=== PATIENT | male | born 1965 ===

== ENCOUNTER 2016-08-26 18:22 | Emergency (ER) | payer OTHER ==
--- NOTE | 2016-08-26 18:41 | ED PDOC ---
Lower Extremity Pain/Injury Time Seen by Provider: 08/26/16 18:32 Chief Complaint (Nursing): Lower Extremity Problem/Injury Chief Complaint (Provider): knee pain History Per: Patient, EMS History/Exam Limitations: no limitations Onset/Duration Of Symptoms: Unknown Additional Complaint(s): Sylvester Elder is a 51 year old male who presents to the ED for the evaluation of pain to left knee s/p trip and fall just prior to arrival. Patient lives in [facility] and he reports attempting to sit on a chair when he slipped off the chair and landed on his left knee. Patient has slight pain to left knee and states that [facility] mandated that he come to ED for eval. Patient uses walker at baseline but was not using walker at time of fall. He states he has been able to walk and bear weight since time of injury. No head injury or LOC was sustained. PMD: none provided Past Medical History Reviewed: Historical Data, Nursing Documentation, Vital Signs Vital Signs: Last Vital Signs Temp 97.0 F L 08/26/16 18:24 Pulse 107 H 08/26/16 18:24 Resp 16 08/26/16 18:24 BP 161/78 H 08/26/16 18:24 Pulse Ox 99 08/26/16 18:24 - Medical History PMH: No Chronic Diseases - Surgical History Surgical History: No Surg Hx - Family History Family History: States: No Known Family Hx - Living Arrangements Living Arrangements: Other (lives in [facility]) - Social History Current smoker - smoking cessation education provided: No Alcohol: None Drugs: Denies - Home Medications Home Medications: Ambulatory Orders Medication Instructions Recorded Furosemide [Lasix] 40 mg PO DAILY #30 tablet 08/21/16 Losartan [Cozaar] 25 mg PO DAILY #30 tab 08/21/16 Spironolactone [Aldactone] 25 mg PO DAILY #30 tab 08/21/16 - Allergies Allergies/Adverse Reactions: Allergies Allergy/AdvReac Type Severity Reaction Status Date / Time Penicillins Allergy Verified 08/22/16 20:59 Wells Criteria for PE - Wells Criteria for Pulmonary Embolism Clinical Signs and Symptoms of DVT: No P.E is #1 Diagnosis, or Equally Likely: No Heart Rate >100: No Immobilization at least 3 days;Surgery previous 4 weeks: No Previous, objectively diagnosed PE or DVT: No Hemoptysis: No Malignancy w/treatment within 6 months, or palliative: No Total Score: 0 Review of Systems ROS Statement: Except As Marked, All Systems Reviewed And Found Negative Musculoskeletal: Positive for: Leg Pain (left knee pain ) Physical Exam - Reviewed Nursing Documentation Reviewed: Yes Vital Signs Reviewed: Yes - Physical Exam Appears: Positive for: Well, Non-toxic, No Acute Distress Skin: Negative for: Rash Eye Exam: Positive for: Normal appearance, EOMI, PERRL Cardiovascular/Chest: Positive for: Regular Rate, Rhythm Respiratory: Positive for: Normal Breath Sounds Extremity: Positive for: Pedal Edema (bilaterally, chronic), Other (full rom left knee with pain, chronic venous stasis dermatitis to bilateral lower extremities). Negative for: Calf Tenderness, Deformity Neurologic/Psych: Positive for: Alert, Oriented - ECG O2 Sat by Pulse Oximetry: 99 (RA) Pulse Ox Interpretation: Normal - Other Rad Left knee x-ray X-Ray: Interpreted by Me, Viewed By Me X-Ray Interpretation: no fx, no dis Medical Decision Making Medical Decision Making: Initial Impression: 51 year old male with left knee pain s/p fall Initial Plan: * x-ray left knee Pt declined pain meds. Patient aware of x-ray results, all questions answered. Knee brace declined. Patient was instructed to take tylenol as needed for pain and he was referred to clinic for follow up. Scribe Attestation: Documented by Lauren Small, acting as a scribe for Magali Olsen PA-C. Provider Scribe Attestation: All medical record entries made by the Scribe were at my direction and personally dictated by me. I have reviewed the chart and agree that the record accurately reflects my personal performance of the history, physical exam, medical decision making, and the department course for this patient. I have also personally directed, reviewed, and agree with the discharge instructions and disposition. Disposition - Clinical Impression Clinical Impression: Knee contusion - Patient ED Disposition Is Patient to be Admitted: No Counseled Patient/Family Regarding: Studies Performed, Diagnosis, Need For Followup - Disposition Referrals: [facility] [Provider Group] Disposition: Routine/Home Disposition Time: 20:49 Condition: STABLE Additional Instructions: Ice, rest and elevate affected area. Take tylenol for pain as needed. Follow up with clinic in 2-3 days. Instructions: Knee Sprain (ED) Print Language: ICELANDIC
[2016-08-26 21:13] VITALS: BP 135/67; PULSE 96; RESP 18; TEMP 98.2; O2SAT 97
--- NOTE | 2016-08-27 10:11 | RAD ---
PROCEDURE: Left Knee Radiographs. HISTORY: Pain. COMPARISON: None. FINDINGS: BONES: No evidence of acute fracture. JOINTS: Moderate to severe osteoarthritic changes are noted associated with severe narrowing of the medial component of the left knee joint and marginal osteophyte formation. JOINT EFFUSION: No radiographic evidence of significant joint effusion. OTHER FINDINGS: None. IMPRESSION: Moderate to severe osteoarthritic changes.
== END 2016-08-26 21:12 | disposition home or self-care (01) ==
LOC: H.ER 18:22
DX: S80.02XA Contusion of left knee, initial encounter (principal); W07.XXXA Fall from chair, initial encounter; Y92.199 Unspecified place in other specified residential institution as the place of occurrence of the external cause

== ENCOUNTER 2017-05-22 07:54 | Inpatient (IN) | payer OTHER, SELFPAY ==
[2017-05-22 08:00] VITALS: BMI 33.4
--- NOTE | 2017-05-22 08:48 | ED PDOC ---
HPI: Chest Pain Time Seen by Provider: 05/22/17 08:17 Chief Complaint (Nursing): Chest Pain Chief Complaint (Provider): Chest Pain History Per: Patient History/Exam Limitations: no limitations Onset/Duration Of Symptoms: Other (Chronic) Current Symptoms Are (Timing): Still Present Additional Complaint(s): 52 year old male with no significant past medical history, who presents to the ED complaining of dizziness associated with headaches. States symptoms are chronic, but worse over past 2 days. No LOC. Denies chest pain or shortness of breath. PMD: None provided Past Medical History Reviewed: Historical Data, Nursing Documentation, Vital Signs Vital Signs: Last Vital Signs Temp 98.0 F 05/22/17 07:58 Pulse 83 05/22/17 09:02 Resp 16 05/22/17 09:02 BP 161/94 H 05/22/17 09:02 Pulse Ox 94 L 05/22/17 09:02 - Medical History PMH: Denies: HTN, Chronic Kidney Disease - Surgical History Surgical History: No Surg Hx - Family History Family History: States: Unknown Family Hx - Immunization History Hx Tetanus Toxoid Vaccination: No Hx Influenza Vaccination: No Hx Pneumococcal Vaccination: No - Home Medications Home Medications: Ambulatory Orders Medication Instructions Recorded Furosemide [Lasix] 40 mg PO DAILY #30 tablet 08/21/16 Losartan [Cozaar] 25 mg PO DAILY #30 tab 08/21/16 Spironolactone [Aldactone] 25 mg PO DAILY #30 tab 08/21/16 Losartan [Cozaar] 25 mg PO DAILY #30 tab 05/22/17 - Allergies Allergies/Adverse Reactions: Allergies Allergy/AdvReac Type Severity Reaction Status Date / Time Penicillins Allergy Verified 08/22/16 20:59 Review of Systems ROS Statement: Except As Marked, All Systems Reviewed And Found Negative Neurological: Positive for: Headache, Dizziness Physical Exam - Reviewed Nursing Documentation Reviewed: Yes Vital Signs Reviewed: Yes - Physical Exam Appears: Positive for: Non-toxic, No Acute Distress Head Exam: Positive for: ATRAUMATIC, NORMAL INSPECTION, NORMOCEPHALIC Skin: Positive for: Normal Color, Warm, Dry. Negative for: Rash Eye Exam: Positive for: EOMI, Normal appearance, PERRL Neck: Positive for: Normal, Painless ROM, Supple Cardiovascular/Chest: Positive for: Regular Rate, Rhythm, Tachycardia (115). Negative for: Murmur Respiratory: Positive for: Normal Breath Sounds (lungs clear bilaterally). Negative for: Respiratory Distress Gastrointestinal/Abdominal: Positive for: Normal Exam, Bowel Sounds, Soft. Negative for: Tenderness Back: Positive for: Normal Inspection. Negative for: L CVA Tenderness, R CVA Tenderness, Vertebral Tenderness Extremity: Positive for: Normal ROM. Negative for: Pedal Edema, Deformity, Swelling Neurologic/Psych: Positive for: Alert, Oriented (x3). Negative for: Motor/ Sensory Deficits - ECG O2 Sat by Pulse Oximetry: 100 (RA) Pulse Ox Interpretation: Normal Medical Decision Making Medical Decision Making: Time: 08:22 Plan: --EKG --Lopressor 25 mg PO --Reevaluation Scribe Attestation: Documented by El Loya, acting as a scribe for Georges Downey MD. Provider Scribe Attestation: All medical record entries made by the Scribe were at my direction and personally dictated by me. I have reviewed the chart and agree that the record accurately reflects my personal performance of the history, physical exam, medical decision making, and the department course for this patient. I have also personally directed, reviewed, and agree with the discharge instructions and disposition. Disposition - Clinical Impression Clinical Impression: Hypertension - Patient ED Disposition Is Patient to be Admitted: No Counseled Patient/Family Regarding: Studies Performed, Diagnosis, Need For Followup, Rx Given - Disposition Referrals: [facility] [Outside] Disposition: Routine/Home Disposition Time: 09:34 Condition: FAIR Prescriptions: Losartan [Cozaar] 25 mg PO DAILY #30 tab Instructions: Hypertension (ED) Forms: [place] ([place] Irish)
[2017-05-22 13:01] LABS: BASO # 0.1 K/uL (0.0-0.2); BASO % 1.8 % (0.0-2.0); EOS # 0.1 K/uL (0.0-0.7); EOS % 1.2 % (0.0-4.0); HEMOGLOBIN 12.2 g/dL (12.0-18.0); LYMPH # 0.6 K/uL (1.0-4.3); MEAN CORPUSCULAR HEMOGLOBIN 34.1 pg (27.0-31.0); MEAN CORPUSCULAR HGB CONC 34.1 g/dL (33.0-37.0); MEAN PLATELET VOLUME 7.9 fl (7.2-11.7); MONO # 0.4 K/uL (0.0-0.8); MONO % 5.1 % (0.0-10.0); NEUT # 6.3 K/uL (1.8-7.0); NEUT % 83.9 % (50.0-75.0); PLATELET COUNT 64 K/uL (130-400); RBC 3.57 Mil/uL (4.40-5.90); RED CELL DISTRIBUTION WIDTH 18.1 % (11.5-14.5); WHITE BLOOD COUNT 7.5 K/uL (4.8-10.8)
[2017-05-22 13:09] LABS: ALT/SGPT 86 U/L (21-72); AST/SGOT 336 U/L (17-59); BLOOD UREA NITROGEN 11 mg/dl (9-20); CALCIUM 7.9 mg/dL (8.4-10.2); GFR AFRICAN-AMERICAN > 60; GFR NON-AFRICAN AMERICAN > 60
[2017-05-22 13:14] LABS: ALB/GLOB RATIO 0.6 (1.0-2.1)
[2017-05-22] MEDS ORDERED: Sodium Chloride 0.9% 1,000 ML IV STA (13:53)
[2017-05-22] MEDS ORDERED: Sodium Chloride 0.9% 50 ML IV ONE (14:30)
[2017-05-22] MEDS ORDERED: Iohexol 300 100 ML IJ ONE (14:30)
--- NOTE | 2017-05-22 15:14 | CT ---
PROCEDURE: CT Abdomen and Pelvis with contrast HISTORY: Elevated bili, abd pain COMPARISON: None. TECHNIQUE: Contrast dose: 95 mL Omnipaque 300 Radiation dose: Total exam DLP = 1093.7 mGy-cm. This CT exam was performed using one or more of the following dose reduction techniques: Automated exposure control, adjustment of the mA and/or kV according to patient size, and/or use of iterative reconstruction technique. FINDINGS: LOWER THORAX: Cardiomegaly. No focal consolidation or pleural effusion. LIVER: Diffuse heterogeneous attenuation, limiting evaluation for focal lesion. No ductal dilatation. GALLBLADDER AND BILE DUCTS: Mild wall thickening. PANCREAS: Mild peripancreatic hazy change and trace fluid. No gross lesion or ductal dilatation. SPLEEN: Unremarkable. ADRENALS: Unremarkable. No mass. KIDNEYS AND URETERS: Unremarkable. No hydronephrosis. No solid mass. VASCULATURE: Unremarkable. No aortic aneurysm. BOWEL: Diffusely mildly thickened. No obstruction. APPENDIX: Not visualized. PERITONEUM: Minimal perihepatic and perisplenic ascites with trace fluid in the right paracolic gutter and pelvis. Large fat containing ventral hernia with sac size measuring 6.2 x 10.7 x 11.6 centimeter. Bilateral fat containing inguinal hernias. No free air. LYMPH NODES: Unremarkable. No enlarged lymph nodes. BLADDER: Unremarkable. REPRODUCTIVE: Unremarkable. BONES: No acute fracture. OTHER FINDINGS: None. IMPRESSION: Diffuse heterogeneous hepatic attenuation without obvious focal lesion. No intrahepatic or extrahepatic biliary ductal dilatation. Minimal perihepatic and perisplenic ascites with trace fluid in the right pericolic gutter and pelvis. Mild gallbladder wall thickening. Gallbladder wall thickening is a nonspecific finding which can be seen with ascites, hepatitis, cholecystitis, CHF or hypoproteinemic states. Clinical correlation is recommended. If clinical concern for gallbladder pathology exists, a HIDA scan may be performed. Mild peripancreatic hazy change and trace fluid. Findings may be related to acute pancreatitis versus reactive to underlying peritoneal pathology. Diffuse mild small and large bowel wall thickening which may be infectious/ inflammatory in etiology or reactive. Large fat containing ventral hernia as described above. Additional findings as above. Findings conveyed to Dr. Orta by Dr. Mcgee at 3:10 pm on 05/22/2017.
--- NOTE | 2017-05-22 15:29 | CP.PCM.HP ---
History of Present Illness - History of Present Illness History of Present Illness: CC: abdominal pain, nausea, vomiting, dizzy HPI: 52 year old male with PMH ETOH abuse, ETOH cirrhosis, ETOH hepatitis, recent hospitalization for this approximately 9 months ago at [facility], presents to the emergency room with similar complaints of 3 day hx of mild to moderate abdominal pain, waxing and waning in nature, generalized, associated with nausea and NBNB emesis, also associated with dizziness and unsteadiness/ ataxia. In ER, afebrile, HR 108, BP 163/103, stable H/H, platelets 64, coagulopathy INR 1.7, no WBC, elevated transaminases AST 336, ALT 86 ALP 189 TBILI 12.7, lipase 351. Ammonia and hepatitis panels pending. CT abd pel + no intra or extrahepatic biliary dilatiation. Mild GB wall thickening. Mild pancreatic hazy change and trace fluid. Mild diffuse small and large bowel wall thickening which may be infectious and/or inflammatory. HIDA also pending. GI consult, Dr. Nassar. HD stable, NAD. Admit to medsurg for ETOH hepatitis, ETOH cirrhosis. ROS: Per HPI, all other systems reviewed and neg PMH: ETOH abuse, ETOH cirrhosis, ETOH hepatitis PSH: denies FH: denies SH: denies tobacco, IVDU, +ETOH, does not specify how much he drinks nor how often PCN allergy Vitals Reviewed GEN: WDWN, ALERT, COOPERATIVE HEENT: NCAT, PERRL, EOMI +scleral icterus HEART: RRR, +S1S2, NO MRG LUNG: CTAB, NO WRR ABD: SOFT, generalized tenderness, distended, unable to palpate masses/HSM EXT: NORMAL PEDAL PULSES, GOOD CAPILLARY REFILL NEURO: AAOX3, STRENGTH EQUAL BILATERAL UPPER AND LOWER EXTREMITIES SKIN: WARM, DRY PSYCH: NORMAL MOOD, NORMAL AFFECT LABS Most Recent Lab Values WBC 7.5 K/uL (4.8-10.8) 05/22/17 12:50 RBC 3.57 Mil/uL (4.40-5.90) L 05/22/17 12:50 Hgb 12.2 g/dL (12.0-18.0) 05/22/17 12:50 Hct 35.7 % (35.0-51.0) 05/22/17 12:50 MCV 100.0 fl (80.0-94.0) H 05/22/17 12:50 MCH 34.1 pg (27.0-31.0) H 05/22/17 12:50 MCHC 34.1 g/dL (33.0-37.0) 05/22/17 12:50 RDW 18.1 % (11.5-14.5) H 05/22/17 12:50 Plt Count 64 K/uL (130-400) L 05/22/17 12:50 MPV 7.9 fl (7.2-11.7) 05/22/17 12:50 Neut % (Auto) 83.9 % (50.0-75.0) H 05/22/17 12:50 Lymph % (Auto) 8.0 % (20.0-40.0) L 05/22/17 12:50 Emmet % (Auto) 5.1 % (0.0-10.0) 05/22/17 12:50 Eos % (Auto) 1.2 % (0.0-4.0) 05/22/17 12:50 Baso % (Auto) 1.8 % (0.0-2.0) 05/22/17 12:50 Neut # 6.3 K/uL (1.8-7.0) 05/22/17 12:50 Lymph # 0.6 K/uL (1.0-4.3) L 05/22/17 12:50 Emmet # 0.4 K/uL (0.0-0.8) 05/22/17 12:50 Eos # 0.1 K/uL (0.0-0.7) 05/22/17 12:50 Baso # 0.1 K/uL (0.0-0.2) 05/22/17 12:50 PT 18.7 Seconds (9.8-13.1) H 05/22/17 14:00 INR 1.7 (0.9-1.2) H 05/22/17 14:00 Sodium 142 mmol/l (132-148) 05/22/17 12:50 Potassium 3.6 MMOL/L (3.6-5.0) 05/22/17 12:50 Chloride 95 mmol/L (98-107) L 05/22/17 12:50 Carbon Dioxide 27 mmol/L (22-30) 05/22/17 12:50 Anion Gap 24 (10-20) H 05/22/17 12:50 BUN 11 mg/dl (9-20) 05/22/17 12:50 Creatinine 0.6 mg/dl (0.8-1.5) L 05/22/17 12:50 Est GFR ( Amer) > 60 05/22/17 12:50 Est GFR (Non-Af Amer) > 60 05/22/17 12:50 Random Glucose 109 mg/dL (75-110) 05/22/17 12:50 Calcium 7.9 mg/dL (8.4-10.2) L 05/22/17 12:50 Total Bilirubin 12.7 mg/dl (0.2-1.3) H 05/22/17 12:50 AST 336 U/L (17-59) H 05/22/17 12:50 ALT 86 U/L (21-72) H 05/22/17 12:50 Alkaline Phosphatase 189 U/L (38-126) H 05/22/17 12:50 Total Protein 8.0 G/DL (6.3-8.2) 05/22/17 12:50 Albumin 3.0 g/dL (3.5-5.0) L 05/22/17 12:50 Globulin 5.0 gm/dL (2.2-3.9) H 05/22/17 12:50 Albumin/Globulin Ratio 0.6 (1.0-2.1) L 05/22/17 12:50 Lipase 351 U/L (23-300) H 05/22/17 14:[address] abd pel + no intra or extrahepatic biliary dilatiation. Mild GB wall thickening. Mild pancreatic hazy change and trace fluid. Mild diffuse small and large bowel wall thickening which may be infectious and/or inflammatory. HIDA also pending. ASSESSMENT AND PLAN 52 year old male with PMH ETOH abuse, ETOH cirrhosis, ETOH hepatitis, recent hospitalization for this approximately 9 months ago at [facility], presents to the emergency room with similar complaints of 3 day hx of mild to moderate abdominal pain, waxing and waning in nature, generalized, associated with nausea and NBNB emesis, also associated with dizziness and unsteadiness/ ataxia and diarrhea. In ER, afebrile, HR 108, BP 163/103, stable H/H, platelets 64, coagulopathy INR 1.7, no WBC, elevated transaminases AST 336, ALT 86 ALP 189 TBILI 12.7, lipase 351. Ammonia and hepatitis panels pending. CT abd pel + no intra or extrahepatic biliary dilatiation. Mild GB wall thickening. Mild pancreatic hazy change and trace fluid. Mild diffuse small and large bowel wall thickening which may be infectious and/or inflammatory. HIDA also pending. GI consult, Dr. Nassar. HD stable, NAD. Admit to [facility] for ETOH hepatitis, ETOH cirrhosis. ETOH Hepatitis ETOH Cirrhosis ETOH Abuse recently hospitalized for similar presentation 9 months ago admitted for generalized abd pain, dizziness, ataxia elevated transaminases, TBILI 12.7, +coagulopathy, +thrombocytopena Lipase 351 No extra/intrahepatic ductal dilatation appreciated on CT GB wall thickening on CT, HIDA Pending for GB eval Hazy pancreatic change, repeat Lipase tomorrow AM 2/2 vague abd pain NPO maintenance fluids D5 1/2 NS + [address] Nassar appreciated Small and Large bowel wall thickening Gastroenteritis/Colitis? presented with diarrhea for 3 days as well bacterial vs. inflammatory process procalcitonin pending reevaluate tomorrow AM VTE PPX plt 64, SCDs Present on Admission - Present on Admission Any Indicators Present on Admission: No Past Patient History - Infectious Disease Hx of Infectious Diseases: None - Past Medical History & Family History Past Medical History?: Yes - Past Social History Smoking Status: Never Smoked - CARDIAC Hx Hypertension: No - PULMONARY Hx Respiratory Disorders: No - NEUROLOGICAL Hx Neurological Disorder: No - HEENT Hx HEENT Problems: No - RENAL Hx Chronic Kidney Disease: No - ENDOCRINE/METABOLIC Hx Endocrine Disorders: No - HEMATOLOGICAL/ONCOLOGICAL Hx Blood Disorders: No - INTEGUMENTARY Hx Dermatological Problems: No - MUSCULOSKELETAL/RHEUMATOLOGICAL Hx Musculoskeletal Disorders: No Hx Falls: Yes - GASTROINTESTINAL Hx Gastrointestinal Disorders: No - GENITOURINARY/GYNECOLOGICAL Hx Genitourinary Disorders: No - PSYCHIATRIC Hx Psychophysiologic Disorder: No Hx Substance Use: No - SURGICAL HISTORY Hx Surgeries: No - ANESTHESIA Hx Anesthesia: No Meds Home Medications: Home Medication List Medication Instructions Recorded Confirmed Type Losartan [Cozaar] 25 mg PO DAILY #30 tab 05/22/17 Rx Allergies/Adverse Reactions: Allergies Allergy/AdvReac Type Severity Reaction Status Date / Time Penicillins Allergy Verified 08/22/16 20:59 Results - Vital Signs Recent Vital Signs: Last Vital Signs Temp 97.3 F L 05/22/17 09:46 Pulse 83 05/22/17 14:36 Resp 16 05/22/17 14:36 BP 138/68 05/22/17 14:36 Pulse Ox 93 L 05/22/17 14:36 - Labs Result Diagrams: 05/22/17 12:50 05/22/17 12:50 Labs: Laboratory Results - last 24 hr 05/22/17 05/22/17 05/22/17 12:50 12:50 14:13 WBC 7.5 RBC 3.57 L Hgb 12.2 Hct 35.7 MCV 100.0 H MCH 34.1 H MCHC 34.1 RDW 18.1 H Plt Count 64 L MPV 7.9 Neut % (Auto) 83.9 H Lymph % (Auto) 8.0 L Emmet % (Auto) 5.1 Eos % (Auto) 1.2 Baso % (Auto) 1.8 Neut # 6.3 Lymph # 0.6 L Emmet # 0.4 Eos # 0.1 Baso # 0.1 Sodium 142 Potassium 3.6 Chloride 95 L Carbon Dioxide 27 Anion Gap 24 H BUN 11 Creatinine 0.6 L Est GFR ( Amer) > 60 Est GFR (Non-Af Amer) > 60 Random Glucose 109 Calcium 7.9 L Total Bilirubin 12.7 H AST 336 H ALT 86 H Alkaline Phosphatase 189 H Total Protein 8.0 Albumin 3.0 L Globulin 5.0 H Albumin/Globulin Ratio 0.6 L Lipase 351 H
[2017-05-22 15:37] LABS: INR 1.7 (0.9-1.2); PROTHROMBIN TIME 18.7 Seconds (9.8-13.1)
[2017-05-22 18:45] LABS: BANDS 4 % (0-2); BASOPHIL 2 % (0-2); EOSINOPHIL 1 % (0-7); LYMPHOCYTE 3 % (20-50); MONOCYTE 3 % (0-10); NEUTROPHIL 87 % (42-75); TOTAL CELLS COUNTED 100
[2017-05-22 18:46] LABS: PLATELET ESTIMATE DECREASED (NORMAL)
[2017-05-22 18:47] LABS: ANISOCYTOSIS SLIGHT; POIKILOCYTOSIS SLIGHT
[2017-05-22 18:48] LABS: HYPOCHROMIC SLIGHT; TARGET CELLS SLIGHT
[2017-05-22 18:49] LABS: ACANTHOCYTES SLIGHT; TEARDROP CELLS SLIGHT
[2017-05-22 18:50] LABS: LARGE PLATELETS PRESENT; SMUDGE CELLS PRESENT; TOXIC GRANULATION PRESENT
[2017-05-22] MEDS ORDERED: Influenza Vaccine 18yr & older 0.5 ML/45 MCG SYR IM ONE (18:59)
[2017-05-22] MEDS ORDERED: Pneumococcal 23-Valent Vaccine IM ONE (18:59)
[2017-05-22] MEDS: Potassium Ch 20mEq in D5-1/2NS 1,000 ML IV SCH (20:47)
[2017-05-23] MEDS: Potassium Ch 20mEq in D5-1/2NS 1,000 ML IV SCH ×2 (00:45→05:00)
[2017-05-23 07:39] LABS: BASO # 0.2 K/uL (0.0-0.2); BASO % 2.4 % (0.0-2.0); EOS # 0.2 K/uL (0.0-0.7); EOS % 2.1 % (0.0-4.0); HEMOGLOBIN 12.2 g/dL (12.0-18.0); LYMPH # 0.6 K/uL (1.0-4.3); LYMPH % 7.6 % (20.0-40.0); MEAN CELL VOLUME 100.2 fl (80.0-94.0); MONO # 0.5 K/uL (0.0-0.8); MONO % 5.8 % (0.0-10.0); NEUT % 82.1 % (50.0-75.0); NRBC % 0.1 % (0.0-0.0); RBC 3.47 Mil/uL (4.40-5.90); RED CELL DISTRIBUTION WIDTH 18.6 % (11.5-14.5); WHITE BLOOD COUNT 8.6 K/uL (4.8-10.8)
[2017-05-23 07:59] LABS: ALBUMIN 2.8 g/dL (3.5-5.0); ALT/SGPT 85 U/L (21-72); AST/SGOT 330 U/L (17-59); BLOOD UREA NITROGEN 10 mg/dl (9-20); CALCIUM 7.9 mg/dL (8.4-10.2); GFR AFRICAN-AMERICAN > 60; GFR NON-AFRICAN AMERICAN > 60; LIPASE 253 U/L (23-300)
[2017-05-23 08:14] LABS: ALB/GLOB RATIO 0.6 (1.0-2.1)
--- NOTE | 2017-05-23 10:50 | CP.PCM.PN ---
Subjective - Date & Time of Evaluation Date of Evaluation: 05/23/17 Time of Evaluation: 10:50 - Subjective Subjective: pt continues to have pain and some diarrhea and soft stools. mild pain, no nausea no emesis will initiate cipro flagyl for possible pancolitis afebrile no wbc HD stable NAD Objective - Vital Signs/Intake and Output Vital Signs (last 24 hours): Temp Pulse Resp BP Pulse Ox 98.6 F 99 H 20 142/79 94 L 05/23/17 08:18 05/23/17 08:18 05/23/17 08:18 05/23/17 08:28 05/23/17 08:18 - Medications Medications: Current Medications Potassium Chloride/Dextrose/Sod Cl (Potassium Chl 20 Meq In D5-1/2ns) 1,000 mls @ 125 mls/hr IV .Q8H [facility] Stop: 05/23/17 16:41 Last Admin: 05/23/17 05:00 Dose: 125 mls/hr Lorazepam (Ativan) 1 mg IVP Q3 PRN PRN Reason: withdrawal symptoms Losartan Potassium (Cozaar) 25 mg PO DAILY [facility] Last Admin: 05/23/17 08:28 Dose: 25 mg Ondansetron HCl (Zofran Inj) 4 mg IVP Q6 PRN PRN Reason: Nausea/Vomiting Spironolactone (Aldactone) 25 mg PO DAILY [facility] Last Admin: 05/23/17 08:28 Dose: 25 mg - Labs Labs: 05/23/17 06:30 05/23/17 06:30 PT 18.7 Seconds (9.8-13.1) H 05/22/17 14:00 INR 1.7 (0.9-1.2) H 05/22/17 14:00 - Constitutional Appears: Non-toxic, No Acute Distress - Head Exam Head Exam: ATRAUMATIC, NORMOCEPHALIC - Eye Exam Eye Exam: EOMI, Normal appearance, PERRL - ENT Exam ENT Exam: Mucous Membranes Moist, Normal Oropharynx - Respiratory Exam Respiratory Exam: Clear to Ausculation Bilateral, NORMAL BREATHING PATTERN - Cardiovascular Exam Cardiovascular Exam: RRR, +S1, +S2 - GI/Abdominal Exam GI & Abdominal Exam: Soft, Normal Bowel Sounds - Extremities Exam Extremities Exam: Full ROM, Normal Capillary Refill - Back Exam Back Exam: absent: CVA tenderness (L), CVA tenderness (R) - Neurological Exam Neurological Exam: Alert, Awake - Psychiatric Exam Psychiatric exam: Normal Affect, Normal Mood - Skin Skin Exam: Dry, Warm Assessment and Plan - Assessment and Plan (Free Text) Plan: 52 year old male with PMH ETOH abuse, ETOH cirrhosis, ETOH hepatitis, recent hospitalization for this approximately 9 months ago at [facility], presents to the emergency room with similar complaints of 3 day hx of mild to moderate abdominal pain, waxing and waning in nature, generalized, associated with nausea and NBNB emesis, also associated with dizziness and unsteadiness/ ataxia and diarrhea. In ER, afebrile, HR 108, BP 163/103, stable H/H, platelets 64, coagulopathy INR 1.7, no WBC, elevated transaminases AST 336, ALT 86 ALP 189 TBILI 12.7, lipase 351. Ammonia and hepatitis panels pending. CT abd pel + no intra or extrahepatic biliary dilatiation. Mild GB wall thickening. Mild pancreatic hazy change and trace fluid. Mild diffuse small and large bowel wall thickening which may be infectious and/or inflammatory. HIDA also pending. GI consult, Dr. Nassar. HD stable, NAD. Admit to [facility] for ETOH hepatitis, ETOH cirrhosis. ETOH Hepatitis ETOH Cirrhosis ETOH Abuse recently hospitalized for similar presentation 9 months ago admitted for generalized abd pain, dizziness, ataxia elevated transaminases, TBILI 12.7, +coagulopathy, +thrombocytopena Lipase 351, no sig difference today No extra/intrahepatic ductal dilatation appreciated on CT GB wall thickening on CT, HIDA Pending for GB eval Hazy pancreatic change, repeat Lipase tomorrow AM 2/2 vague abd pain NPO maintenance fluids D5 1/2 NS + [address] Nassar appreciated Small and Large bowel wall thickening Gastroenteritis/Colitis? presented with diarrhea for 3 days as well bacterial vs. inflammatory process procalcitonin pending will initiate cipro flagyl for pancolitis. VTE PPX plt 64, SCDs
[2017-05-23 11:39] LABS: BANDS 3 % (0-2); BASOPHIL 2 % (0-2); EOSINOPHIL 3 % (0-7); LYMPHOCYTE 3 % (20-50); MONOCYTE 2 % (0-10); NEUTROPHIL 87 % (42-75); PLATELET ESTIMATE DECREASED (NORMAL); TOTAL CELLS COUNTED 100
[2017-05-23 11:40] LABS: ANISOCYTOSIS SLIGHT
[2017-05-23 11:45] LABS: PLATELET COUNT 68 K/uL (130-400)
[2017-05-23] MEDS ORDERED: Magnesium Sulfate 2 gm/50 ml 2 GM/50 ML BAG IVPB ONE (15:00)
[2017-05-23] MEDS: metroNIDAZOLE 500mg/100ml NS 100 ML IVPB SCH (17:16)
[2017-05-23 19:18] LABS: SQUAMOUS EPITHIAL 4 /hpf (0-5); URINE BACTERIA RARE (<OCC); URINE BILIRUBIN MODERATE (NEGATIVE); URINE BLOOD SMALL (NEGATIVE); URINE CLARITY SLIGHTY-CLOUDY (Clear); URINE GLUCOSE (UA) >=500 mg/dL (Normal); URINE HYALINE CAST 0-2 /hpf (0-2); URINE LEUKOCYTE ESTERASE NEG Leu/uL (Negative); URINE NITRATE NEGATIVE (NEGATIVE); URINE PROTEIN 100 mg/dL (NEGATIVE)
[2017-05-23 19:26] LABS: URINE COLOR DARK YELLOW (YELLOW)
[2017-05-23] MEDS ORDERED: Potassium Ch 20mEq in D5-1/2NS 1,000 ML IV SCH (20:00)
[2017-05-23] MEDS: Ciprofloxacin 200mg/100ml D5W 100 ML IVPB SCH (21:16)
[2017-05-24] MEDS: metroNIDAZOLE 500mg/100ml NS 100 ML IVPB SCH ×2 (00:26→09:10)
[2017-05-24 06:26] LABS: BASO # 0.1 K/uL (0.0-0.2); BASO % 1.3 % (0.0-2.0); EOS # 0.4 K/uL (0.0-0.7); EOS % 4.5 % (0.0-4.0); HEMOGLOBIN 11.7 g/dL (12.0-18.0); LYMPH # 0.5 K/uL (1.0-4.3); LYMPH % 6.1 % (20.0-40.0); MEAN CORPUSCULAR HEMOGLOBIN 35.3 pg (27.0-31.0); MEAN CORPUSCULAR HGB CONC 35.7 g/dL (33.0-37.0); MEAN PLATELET VOLUME 8.5 fl (7.2-11.7); MONO # 0.4 K/uL (0.0-0.8); MONO % 5.4 % (0.0-10.0); NEUT # 6.9 K/uL (1.8-7.0); NEUT % 82.7 % (50.0-75.0); NRBC % 0.1 % (0.0-0.0); RBC 3.32 Mil/uL (4.40-5.90); RED CELL DISTRIBUTION WIDTH 17.9 % (11.5-14.5); WHITE BLOOD COUNT 8.3 K/uL (4.8-10.8)
[2017-05-24 06:37] LABS: ALB/GLOB RATIO 0.5 (1.0-2.1); ALBUMIN 2.6 g/dL (3.5-5.0); ALT/SGPT 73 U/L (21-72); AST/SGOT 256 U/L (17-59); BLOOD UREA NITROGEN 12 mg/dl (9-20); CALCIUM 7.9 mg/dL (8.4-10.2); GFR AFRICAN-AMERICAN > 60; GFR NON-AFRICAN AMERICAN > 60; MAGNESIUM 1.7 MG/DL (1.6-2.3)
[2017-05-24] MEDS: Ciprofloxacin 200mg/100ml D5W 100 ML IVPB SCH (09:06)
[2017-05-24] MEDS ORDERED: Potassium Chloride 20 mEq ER Tab PO ONE (09:08)
[2017-05-24 09:56] LABS: HEPATITIS B SURFACE AG NEGATIVE (NEGATIVE)
[2017-05-24 10:02] LABS: HEPATITIS A IGM NEGATIVE (NEGATIVE); HEPATITIS B CORE AB Negative (NEGATIVE)
[2017-05-24 10:14] LABS: HEPATITIS C ANTIBODY Negative (NEGATIVE)
--- NOTE | 2017-05-24 14:16 | CP.PCM.DIS ---
Provider - Provider Date of Admission: 05/22/17 14:15 Attending physician: Juanis Pang DO Consults: FRANCK CAZARES Time Spent in preparation of Discharge (in minutes): 30 Diagnosis - Discharge Diagnosis (1) Alcoholic cirrhosis of liver with ascites Status: Acute (2) Hyperbilirubinemia Status: Acute Hospital Course - Lab Results Lab Results: Most Recent Lab Values WBC 8.3 K/uL (4.8-10.8) 05/24/17 05:40 RBC 3.32 Mil/uL (4.40-5.90) L 05/24/17 05:40 Hgb 11.7 g/dL (12.0-18.0) L 05/24/17 05:40 Hct 32.8 % (35.0-51.0) L 05/24/17 05:40 MCV 99.0 fl (80.0-94.0) H 05/24/17 05:40 MCH 35.3 pg (27.0-31.0) H 05/24/17 05:40 MCHC 35.7 g/dL (33.0-37.0) 05/24/17 05:40 RDW 17.9 % (11.5-14.5) H 05/24/17 05:40 Plt Count 46 K/uL (130-400) L D 05/24/17 05:40 MPV 8.5 fl (7.2-11.7) 05/24/17 05:40 Neut % (Auto) 82.7 % (50.0-75.0) H 05/24/17 05:40 Lymph % (Auto) 6.1 % (20.0-40.0) L 05/24/17 05:40 [place] % (Auto) 5.4 % (0.0-10.0) 05/24/17 05:40 Eos % (Auto) 4.5 % (0.0-4.0) H 05/24/17 05:40 Baso % (Auto) 1.3 % (0.0-2.0) 05/24/17 05:40 Neut # 6.9 K/uL (1.8-7.0) 05/24/17 05:40 Lymph # 0.5 K/uL (1.0-4.3) L 05/24/17 05:40 [place] # 0.4 K/uL (0.0-0.8) 05/24/17 05:40 Eos # 0.4 K/uL (0.0-0.7) 05/24/17 05:40 Baso # 0.1 K/uL (0.0-0.2) 05/24/17 05:40 Neutrophils % (Manual) 87 % (42-75) H 05/23/17 06:30 Band Neutrophils % 3 % (0-2) H 05/23/17 06:30 Lymphocytes % (Manual) 3 % (20-50) L 05/23/17 06:30 Monocytes % (Manual) 2 % (0-10) 05/23/17 06:30 Eosinophils % (Manual) 3 % (0-7) 05/23/17 06:30 Basophils % (Manual) 2 % (0-2) 05/23/17 06:30 Smudge Cells Present 05/22/17 12:50 Toxic Granulation Present 05/22/17 12:50 Platelet Estimate Decreased (NORMAL) L 05/23/17 06:30 Large Platelets Present 05/22/17 12:50 Hypochromasia (manual) Slight 05/22/17 12:50 Poikilocytosis (manual Slight 05/22/17 12:50 Anisocytosis (manual) Slight 05/23/17 06:30 Macrocytosis (manual) Slight 05/23/17 06:30 Target Cells Slight 05/22/17 12:50 Tear Drop Cells Slight 05/22/17 12:50 Acanthocytes (Spur) Slight 05/22/17 12:50 PT 18.7 Seconds (9.8-13.1) H 05/22/17 14:00 INR 1.7 (0.9-1.2) H 05/22/17 14:00 Sodium 137 mmol/l (132-148) 05/24/17 05:40 Potassium 3.3 MMOL/L (3.6-5.0) L 05/24/17 05:40 Chloride 98 mmol/L (98-107) 05/24/17 05:40 Carbon Dioxide 27 mmol/L (22-30) 05/24/17 05:40 Anion Gap 15 (10-20) 05/24/17 05:40 BUN 12 mg/dl (9-20) 05/24/17 05:40 Creatinine 0.7 mg/dl (0.8-1.5) L 05/24/17 05:40 Est GFR ( Amer) > 60 05/24/17 05:40 Est GFR (Non-Af Amer) > 60 05/24/17 05:40 Random Glucose 107 mg/dL (75-110) 05/24/17 05:40 Calcium 7.9 mg/dL (8.4-10.2) L 05/24/17 05:40 Magnesium 1.7 MG/DL (1.6-2.3) 05/24/17 05:40 Total Bilirubin 16.4 mg/dl (0.2-1.3) H 05/24/17 05:40 AST 256 U/L (17-59) H D 05/24/17 05:40 ALT 73 U/L (21-72) H 05/24/17 05:40 Alkaline Phosphatase 169 U/L (38-126) H 05/24/17 05:40 Ammonia 59 umo/L (16-60) 05/23/17 01:10 Total Protein 7.5 G/DL (6.3-8.2) 05/24/17 05:40 Albumin 2.6 g/dL (3.5-5.0) L 05/24/17 05:40 Globulin 4.9 gm/dL (2.2-3.9) H 05/24/17 05:40 Albumin/Globulin Ratio 0.5 (1.0-2.1) L 05/24/17 05:40 Lipase 253 U/L (23-300) 05/23/17 06:30 Procalcitonin 0.22 NG/ML (0.19-0.49) 05/22/17 17:01 Urine Color Dark yellow (YELLOW) 05/23/17 18:42 Urine Clarity Slighty-cloudy (Clear) 05/23/17 18:42 Urine pH 8.0 (5.0-8.0) 05/23/17 18:42 Ur Specific [place] 1.018 (1.003-1.030) 05/23/17 18:42 Urine Protein 100 mg/dL (NEGATIVE) 05/23/17 18:42 Urine Glucose (UA) >=500 mg/dL (Normal) 05/23/17 18:42 Urine Ketones Negative mg/dL (NEGATIVE) 05/23/17 18:42 Urine Blood Small (NEGATIVE) 05/23/17 18:42 Urine Nitrate Negative (NEGATIVE) 05/23/17 18:42 Urine Bilirubin Moderate (NEGATIVE) 05/23/17 18:42 Urine Urobilinogen 4.0 mg/dL (0.2-1.0) 05/23/17 18:42 Ur Leukocyte Esterase Neg [place]/uL (Negative) 05/23/17 18:42 Urine RBC (Auto) 1 /hpf (0-3) 05/23/17 18:42 Urine Microscopic WBC 6 /hpf (0-5) H 05/23/17 18:42 Ur Squamous Epith Cells 4 /hpf (0-5) 05/23/17 18:42 Urine Bacteria Rare (<OCC) 05/23/17 18:42 Hyaline Casts 0-2 /hpf (0-2) 05/23/17 18:42 Hepatitis A IgM Ab Negative (NEGATIVE) 05/22/17 18:32 Hep Bs Antigen Negative (NEGATIVE) 05/22/17 18:32 Hep B Core IgM Ab Negative (NEGATIVE) 05/22/17 18:32 Hepatitis C Antibody Negative (NEGATIVE) 05/22/17 18:32 - Hospital Course Hospital Course: 52 year old male with PMH ETOH abuse, ETOH cirrhosis, ETOH hepatitis, recent hospitalization for this approximately 9 months ago at [facility], presents to the emergency room with similar complaints of 3 day hx of mild to moderate abdominal pain, waxing and waning in nature, generalized, associated with nausea and NBNB emesis, also associated with dizziness and unsteadiness/ ataxia and diarrhea. In ER, afebrile, HR 108, BP 163/103, stable H/H, platelets 64, coagulopathy INR 1.7, no WBC, elevated transaminases AST 336, ALT 86 ALP 189 TBILI 12.7, lipase 351. Ammonia and hepatitis panels pending. CT abd pel + no intra or extrahepatic biliary dilatiation. Mild GB wall thickening. Mild pancreatic hazy change and trace fluid. Mild diffuse small and large bowel wall thickening which may be infectious and/or inflammatory. HIDA also pending. GI consult, Dr. Cazares. HD stable, NAD. Admit to medsurg for ETOH hepatitis, ETOH cirrhosis. Discussed with GI, Dr. Cazares. Cirrhosis and ETOH hepatits chronic, no further interventions needed inpatient. Patient has been instructed to follow up with GI clinic and the [facility] as an outpatient. He was also given these instructions upon his last discharge. Patient also no longer requiring abx for "colitis" as this is a chronic finding in ETOH cirrhosis patients with low albumin, as such, abx will not be given upon discharge. Diarrhea and pain have since improved. Patient has been evaluated by PT and is stable for discharge at this time. For further details of admission please refer to prior notes. Discharge Exam - Head Exam Head Exam: ATRAUMATIC, NORMOCEPHALIC - Eye Exam Eye Exam: EOMI, Normal appearance, PERRL Pupil Exam: NORMAL ACCOMODATION - ENT Exam ENT Exam: Mucous Membranes Moist, Normal Oropharynx - Respiratory Exam Respiratory Exam: Clear to PA & Lateral, NORMAL BREATHING PATTERN - Cardiovascular Exam Cardiovascular Exam: RRR, +S1, +S2 - GI/Abdominal Exam GI & Abdominal Exam: Distended, Normal Bowel Sounds, Soft. absent: Guarding, Rebound, Rigid, Tenderness, Unremarkable - Extremities Exam Extremities exam: normal capillary refill, pedal pulses present - Back Exam Back exam: absent: CVA tenderness (L), CVA tenderness (R) - Neurological Exam Neurological exam: Alert, Oriented x3 - Psychiatric Exam Psychiatric exam: Normal Affect, Normal Mood - Skin Skin Exam: Dry, Warm Discharge Plan - Discharge Medications Prescriptions: Furosemide [Lasix] 40 mg PO DAILY #30 tablet Metoprolol Succinate XL [Toprol XL] 12.5 mg PO BRK #30 tab Spironolactone [Aldactone] 25 mg PO Q12 #60 tab - Follow Up Plan Condition: FAIR Disposition: HOME/ ROUTINE Instructions: Hypertension (ED) Additional Instructions: follow up in GI clinic through [facility] in one week Referrals: [facility] [Provider Group]
--- NOTE | 2017-05-24 15:08 | CP.PCM.CON ---
History of Present Illness - History of Present Illness History of Present Illness: 52 yo male with alcohol abuse and cirrhosis admitted with abdominal pain nausea and vomiting. Had CT which demonstrates thickening of small and large intestine and large fat containing ventral wall hernia. Review of Systems - Constitutional Constitutional: absent: Chills - EENT Eyes: absent: Blurred Vision Ears: absent: Decreased Hearing Nose/Mouth/Throat: absent: Epistaxis - Cardiovascular Cardiovascular: absent: Chest Pain - Respiratory Respiratory: absent: Dyspnea - Gastrointestinal Gastrointestinal: absent: Abdominal Pain - Genitourinary Genitourinary: absent: Change in Urinary Stream Past Patient History - Infectious Disease Hx of Infectious Diseases: None - Past Medical History & Family History Past Medical History?: Yes - Past Social History Smoking Status: Never Smoked - CARDIAC Hx Hypertension: No - PULMONARY Hx Respiratory Disorders: No - NEUROLOGICAL Hx Neurological Disorder: No - HEENT Hx HEENT Problems: No - RENAL Hx Chronic Kidney Disease: No - ENDOCRINE/METABOLIC Hx Endocrine Disorders: No - HEMATOLOGICAL/ONCOLOGICAL Hx Blood Disorders: No - INTEGUMENTARY Hx Dermatological Problems: No - MUSCULOSKELETAL/RHEUMATOLOGICAL Hx Musculoskeletal Disorders: No Hx Falls: No - GASTROINTESTINAL Hx Gastrointestinal Disorders: No - GENITOURINARY/GYNECOLOGICAL Hx Genitourinary Disorders: No - PSYCHIATRIC Hx Psychophysiologic Disorder: No Hx Substance Use: No - SURGICAL HISTORY Hx Surgeries: No - ANESTHESIA Hx Anesthesia: No Meds Home Medications: Home Medication List Medication Instructions Recorded Confirmed Type Furosemide [Lasix] 40 mg PO DAILY #30 tablet 05/24/17 Rx Metoprolol Succinate XL [Toprol XL] 12.5 mg PO BRK #30 tab 05/24/17 Rx Spironolactone [Aldactone] 25 mg PO Q12 #60 tab 05/24/17 Rx Allergies/Adverse Reactions: Allergies Allergy/AdvReac Type Severity Reaction Status Date / Time Penicillins Allergy Verified 08/22/16 20:59 - Medications Medications: Current Medications Ciprofloxacin (Cipro 200mg/100ml D5w) 100 mls @ 100 mls/hr IVPB Q12 PILLO Last Admin: 05/24/17 09:06 Dose: 100 mls/hr Metronidazole (Flagyl 500mg/100ml Ns) 100 mls @ 100 mls/hr IVPB Q8 PILLO PRN Reason: Protocol Last Admin: 05/24/17 09:10 Dose: 100 mls/hr Potassium Chloride/Dextrose/Sod Cl (Potassium Chl 20 Meq In D5-1/2ns) 1,000 mls @ 100 mls/hr IV .Q10H [facility] Stop: 05/24/17 19:47 Last Admin: 05/24/17 03:33 Dose: 100 mls/hr Lorazepam (Ativan) 1 mg IVP Q3 PRN PRN Reason: withdrawal symptoms Last Admin: 05/24/17 09:18 Dose: 1 mg Losartan Potassium (Cozaar) 25 mg PO DAILY [facility] Last Admin: 05/24/17 09:06 Dose: 25 mg Ondansetron HCl (Zofran Inj) 4 mg IVP Q6 PRN PRN Reason: Nausea/Vomiting Spironolactone (Aldactone) 25 mg PO DAILY [facility] Last Admin: 05/24/17 09:06 Dose: 25 mg Physical Exam - Constitutional Appears: No Acute Distress - Head Exam Head Exam: ATRAUMATIC - Eye Exam Eye Exam: EOMI Pupil Exam: PERRL - ENT Exam ENT Exam: Mucous Membranes Moist - Respiratory Exam Respiratory Exam: Clear to Auscultation Bilateral - Cardiovascular Exam Cardiovascular Exam: REGULAR RHYTHM, +S1, +S2 - GI/Abdominal Exam GI & Abdominal Exam: Distended, Normal Bowel Sounds Additional comments: henia palpated midabdominal wall, nontender. Results - Vital Signs Recent Vital Signs: Last Vital Signs Temp 99.2 F 05/24/17 07:42 Pulse 98 H 05/24/17 13:29 Resp 20 05/24/17 07:42 BP 136/71 05/24/17 09:06 Pulse Ox 95 05/24/17 13:29 - Labs Result Diagrams: 05/24/17 05:40 05/24/17 05:40 Labs: Laboratory Results - last 24 hr 05/22/17 05/22/17 05/23/17 17:01 18:32 18:42 WBC RBC Hgb Hct MCV MCH MCHC RDW Plt Count MPV Neut % (Auto) Lymph % (Auto) [place] % (Auto) Eos % (Auto) Baso % (Auto) Neut # Lymph # [place] # Eos # Baso # Sodium Potassium Chloride Carbon Dioxide Anion Gap BUN Creatinine Est GFR ( Amer) Est GFR (Non-Af Amer) Random Glucose Calcium Magnesium Total Bilirubin AST ALT Alkaline Phosphatase Total Protein Albumin Globulin Albumin/Globulin Ratio Procalcitonin 0.22 Urine Color Dark yellow Urine Clarity Slighty-cloudy Urine pH 8.0 Ur Specific [place] 1.018 Urine Protein 100 Urine Glucose (UA) >=500 Urine Ketones Negative Urine Blood Small Urine Nitrate Negative Urine Bilirubin Moderate Urine Urobilinogen 4.0 Ur Leukocyte Esterase Neg Urine RBC (Auto) 1 Urine Microscopic WBC 6 H Ur Squamous Epith Cells 4 Urine Bacteria Rare Hyaline Casts 0-2 Hepatitis A IgM Ab Negative Hep Bs Antigen Negative Hep B Core IgM Ab Negative Hepatitis C Antibody Negative 05/24/17 05/24/17 05:40 05:40 WBC 8.3 RBC 3.32 L Hgb 11.7 L Hct 32.8 L MCV 99.0 H MCH 35.3 H MCHC 35.7 RDW 17.9 H Plt Count 46 L D MPV 8.5 Neut % (Auto) 82.7 H Lymph % (Auto) 6.1 L [place] % (Auto) 5.4 Eos % (Auto) 4.5 H Baso % (Auto) 1.3 Neut # 6.9 Lymph # 0.5 L [place] # 0.4 Eos # 0.4 Baso # 0.1 Sodium 137 Potassium 3.3 L Chloride 98 Carbon Dioxide 27 Anion Gap 15 BUN 12 Creatinine 0.7 L Est GFR ( Amer) > 60 Est GFR (Non-Af Amer) > 60 Random Glucose 107 Calcium 7.9 L Magnesium 1.7 Total Bilirubin 16.4 H AST 256 H D ALT 73 H Alkaline Phosphatase 169 H Total Protein 7.5 Albumin 2.6 L Globulin 4.9 H Albumin/Globulin Ratio 0.5 L Procalcitonin Urine Color Urine Clarity Urine pH Ur Specific [place] Urine Protein Urine Glucose (UA) Urine Ketones Urine Blood Urine Nitrate Urine Bilirubin Urine Urobilinogen Ur Leukocyte Esterase Urine RBC (Auto) Urine Microscopic WBC Ur Squamous Epith Cells Urine Bacteria Hyaline Casts Hepatitis A IgM Ab Hep Bs Antigen Hep B Core IgM Ab Hepatitis C Antibody Assessment & Plan (1) Alcoholic cirrhosis of liver with ascites Assessment and Plan: Patient with alcoholic hepatitis and and cirrhosis . Last urine alcohol level on chart from 08/2016 was 279. High bilirubin likely from ongoing alcohol use and cirrhosis. Small bowel and colon mucosal thickness most likely from low albumin level and not necessarily infection. May be discharged to f/u with machine burrer. Would avoid using cozaar to avoid hyperkalemia should patient become hepatorenal. Status: Acute
[2017-05-24 16:01] VITALS: O2SAT 98
[2017-05-24 16:15] VITALS: BP 115/65; PULSE 98; RESP 18; TEMP 98.8
--- NOTE | 2017-05-26 08:19 | CARD ---
APPROVED REPORT EKG Measurement Heart [id number] <Conclusion> Sinus tachycardia Possible Anteroseptal infarct, age undetermined Abnormal ECG
== END 2017-05-24 17:55 | disposition home or self-care (01) | DRG 202 ==
LOC: H.ER 07:54 → H.ERHOLD 14:15 → H.MEDSURG1 15:40
PROVIDERS: ADMIT Student in an Organized Health Care Education/Training Program; ATTEND Student in an Organized Health Care Education/Training Program
PROC: 3E0234Z Introduction of Serum, Toxoid and Vaccine into Muscle, Percutaneous Approach (ICD-10-PCS; principal; 2017-05-23)
DX: K70.31 Alcoholic cirrhosis of liver with ascites (principal); K70.11 Alcoholic hepatitis with ascites; D68.9 Coagulation defect, unspecified; R74.0 Nonspecific elevation of levels of transaminase and lactic acid dehydrogenase [LDH]; Z79.899 Other long term (current) drug therapy; Z88.0 Allergy status to penicillin; F10.10 Alcohol abuse, uncomplicated; I10 Essential (primary) hypertension; E80.6 Other disorders of bilirubin metabolism; Z23 Encounter for immunization